=== PATIENT | male | born 1965 | race Caucasian/White ===

== ENCOUNTER 2019-11-28 00:16 | Outpatient (CLI) | payer OTHER, SELFPAY ==
[2019-11-28 18:07] LABS: SARS-CoV-2 RNA PCR Negative
== END 2019-11-28 00:17 | disposition home or self-care (01) ==
LOC: ANHCOVIDDT 00:16
PROVIDERS: PCP Internal Medicine; Visit Provider Internal Medicine Gastroenterology
DX: Z01.812 Encounter for preprocedural laboratory examination (principal); Z20.828 Contact with and (suspected) exposure to other viral communicable diseases
CPT/HCPCS: 87635; C9803; U0003

== ENCOUNTER 2019-11-30 00:57 | Day surgery (SDC) | payer OTHER, SELFPAY ==
[2019-11-22 15:51] VITALS: BMI 35.3
[2019-11-30 06:27] VITALS: BP 170/106; PULSE 107; RESP 20; TEMP 36.6; O2SAT 96
[2019-11-30] MEDS: LACTATED RINGERS 1,000 ML 150 ML IV CONT (06:37)
--- NOTE | 2019-11-30 06:39 | WPDANESEPPF ---
Anes - Initial Pre Proc Eval Procedure: Operation Date: 11/30/19 07:30 Proposed Procedures p Screening Colonoscopy - Lenard Gomes MD Date/Time: 11/30/19 06:39 Surgeon: Lenard Gomes MD Pre Op Diagnosis: Neoplasm Screening Patient Data Age: 54 Gender: M Height: 1.83 m Weight: 118.2 kg Last Vital Signs Temp 36.6 C 11/30/19 06:27 Pulse 107 H 11/30/19 06:27 Resp 20 11/30/19 06:27 BP 170/106 H 11/30/19 06:27 Pulse Ox 96 11/30/19 06:27 Allergies Allergy/AdvReac Type Severity Reaction Status Date / Time Penicillins Allergy Unknown PCN Verified 11/22/19 15:48 Home Medications Medication Instructions Recorded Confirmed Type Adult Low Dose Aspirin 81 mg PO DAILY 11/22/19 11/22/19 History psyllium husk [Metamucil] 1 tbsp PO DAILY 11/22/19 11/22/19 History Patient hx anesthesia problems: none Family hx anesthesia problems: none PMFSH Past Medical History Medical History (Updated 11/30/19 @ 06:39 by Gabriele Nicolas DO) Asthma Fatty liver Hypertension Social History Social History (Updated 11/30/19 @ 06:50 by Gabriele Nicolas DO) Alcohol intake: current Alcohol use details: 3 mixed drinks/day Anes - Eval Final PreProcedure Day of Procedure 11/30/19 06:39 Patient weight: obese Heart: regular rate and rhythm Lungs: clear to auscultation and normal air movement Airway: Mallampati scale class III Neurological: alert and oriented Last oral intake: >/= 8 hours ASA classification: III Emergent: no Anesthetic plan: proceed Anesthesia type and monitoring: general GIVS and standard monitoring Informed Consent: The patient's anesthetic plan and its attendant risks and benefits were discussed with the patient/family/POA. Questions were solicited and answers provided to the satisfaction of the patient/family/POA.
--- NOTE | 2019-11-30 06:51 | PM.HPGS ---
History of Present Illness History of Present Illness Consent: Risks, benefits, and alternatives have been discussed and questions answered. Patient agrees to proceed with procedure. Chief complaint: Neoplasm Screening Narrative: Logan Diez is a 54 year old W male Referred for his 1st screening colonoscopy. Patient did have a positive colo guard test. He has no family history of colon polyps or colon cancer in a first-degree relative. Thinks he had a cousin who had colon cancer. Patient is asymptomatic. [facility] Past Medical History Medical History Asthma Fatty liver Hypertension Surgical History Surgical History (Updated 11/30/19 @ 06:53 by Lenard Gomes MD) History of inguinal herniorrhaphy Status post appendectomy Social History Social History Alcohol intake: current Alcohol use details: 3 mixed drinks/day Meds Home Medications and Allergies Home Medications Medication Instructions Recorded Confirmed Type Adult Low Dose Aspirin 81 mg PO DAILY 11/22/19 11/22/19 History psyllium husk [Metamucil] 1 tbsp PO DAILY 11/22/19 11/22/19 History Allergies Allergy/AdvReac Type Severity Reaction Status Date / Time Penicillins Allergy Unknown PCN Verified 11/22/19 15:48 Vital Signs Vital Signs - 24 hr 11/30/19 06:27 Temperature 36.6 C Pulse Rate 107 H Respiratory Rate 20 Blood Pressure 170/106 H Pulse Oximetry 96 Exam Const: Orientation/consciousness: patient oriented x3 Resp: Auscultation: clear to auscultation bilaterally Cardio: Rate: regular rate Rhythm: regular rhythm Heart sounds: no murmurs GI: GI Palp: Yes Soft to palpation, No Tenderness to palpation present (GI), Yes No hepatosplenomegaly present and No Palpable mass present Auscultation: normal bowel sounds Neuro: General: patient oriented x3 and no focal motor deficits Extrem: General: no pedal edema Assessment and Plan Additional Plan screening colonoscopy secondary to a positive colo guard test
[2019-11-30] MEDS: SIMETHICONE ORAL SUSPENSION 20 MG/0.3 ML 30 ML BOTTLE 0.6 ML IRRIGATION (07:47)
[2019-11-30 07:55] VITALS: BP 120/78; PULSE 106; RESP 28; O2SAT 96
[2019-11-30 08:05] VITALS: BP 112/74; PULSE 97; RESP 23; O2SAT 95
[2019-11-30 08:15] VITALS: BP 121/82; PULSE 81; RESP 17; O2SAT 94
== END 2019-11-30 08:36 | disposition home or self-care (01) ==
PROVIDERS: PCP Internal Medicine; Visit Provider Internal Medicine Gastroenterology
PROC: 0DJD8ZZ Inspection of Lower Intestinal Tract, Via Natural or Artificial Opening Endoscopic (ICD-10-PCS; CPT 45378; principal; 2019-11-30 07:30)
DX: Z12.11 Encounter for screening for malignant neoplasm of colon (principal); R19.5 Other fecal abnormalities; D12.0 Benign neoplasm of cecum; K64.8 Other hemorrhoids; K64.4 Residual hemorrhoidal skin tags; K57.30 Diverticulosis of large intestine without perforation or abscess without bleeding; J45.909 Unspecified asthma, uncomplicated; I10 Essential (primary) hypertension; K76.0 Fatty (change of) liver, not elsewhere classified; Z79.82 Long term (current) use of aspirin; E66.9 Obesity, unspecified; Z68.36 Body mass index [BMI] 36.0-36.9, adult
CPT/HCPCS: 45385; 45381; 88305; J2001; J2704; J7120

== ENCOUNTER 2023-01-27 15:30 | Outpatient (RCR) | payer OTHER, SELFPAY | END 2023-03-14 10:08 | disposition home or self-care (01) | LOC: ANHDMC 15:30 | PROVIDERS: PCP Internal Medicine; Visit Provider Internal Medicine | DX: E11.9 Type 2 diabetes mellitus without complications (principal); Z71.89 Other specified counseling | CPT/HCPCS: G0108 ==

== ENCOUNTER 2023-03-31 15:19 | Outpatient (RCR) | payer OTHER, SELFPAY | END 2023-06-20 09:27 | disposition home or self-care (01) | LOC: ANHDMC 15:19 | PROVIDERS: PCP Internal Medicine; Visit Provider Internal Medicine | DX: E11.9 Type 2 diabetes mellitus without complications (principal); Z71.89 Other specified counseling | CPT/HCPCS: G0108 ==

== ENCOUNTER 2023-04-13 17:02 | Emergency (ER) | payer OTHER, SELFPAY ==
[2023-04-13 17:03] VITALS: BP 160/101; PULSE 100; RESP 18; TEMP 36.8; O2SAT 98
--- NOTE | 2023-04-13 17:17 | ED.LOWEXIN ---
HPI - Extremity Injury (Lower) General Chief Complaint: Extremity Injury, Lower Stated Complaint: toe injury Time Seen by Provider: 04/13/23 17:14 History of Present Illness HPI Narrative: 58-year-old male with a history of well-controlled diabetes presents to the emergency room for evaluation of left great toe pain and redness and swelling around the toenail. Patient states a week ago his dog jumped on his toe and he believes that the dog's nail scratched his toe. Related Data Home Medications Medication Instructions Recorded Confirmed Adult Low Dose Aspirin 81 mg PO DAILY 11/22/19 11/22/19 psyllium husk 3.4 gram/5.4 gram 1 tbsp PO DAILY 11/22/19 11/22/19 oral powder (Metamucil) Allergies Allergy/AdvReac Type Severity Reaction Status Date / Time Penicillins Allergy Unknown PCN Verified 04/13/23 17:02 Review of Systems Review of Systems: All systems reviewed & are unremarkable except as noted in HPI and below PMFSH Past Medical History Medical History Asthma Fatty liver Hypertension Surgical History Surgical History History of inguinal herniorrhaphy Status post appendectomy Social History Social History Alcohol intake: current Alcohol use details: 3 mixed drinks/day Exam Const: General: healthy appearing, no acute distress and alert Resp: Effort & Inspection: normal respiratory effort Auscultation: clear to auscultation bilaterally Cardio: Rate: regular rate Rhythm: regular rhythm Skin: Other: Right great toe: subungual hematoma. Erythema and tenderness to the lateral nail fold Psych: Mental Status: mental status grossly normal Affect: normal affect Attitude: cooperative Course Vital Signs Vital signs: Vital Signs Temperature 36.8 C 04/13/23 17:03 Pulse Rate 100 04/13/23 17:03 Respiratory Rate 18 04/13/23 17:03 Blood Pressure 160/101 H 04/13/23 17:03 Pulse Oximetry 98 04/13/23 17:03 Oxygen Delivery Room Air 04/13/23 17:03 Temperature 36.8 C 04/13/23 17:03 Pulse Rate 100 04/13/23 17:03 Respiratory Rate 18 04/13/23 17:03 Blood Pressure 160/101 H 04/13/23 17:03 Pulse Oximetry 98 04/13/23 17:03 Oxygen Delivery Room Air 04/13/23 17:03 Procedures Nail Trephination Nail Trephination #1: Nail Trephination Date: 04/13/23 Nail Trephination Time: 17:29 Time out: Yes Location (toes): first digit Sterile prep: betadine Method of drainage: nail cautery Procedure successful: Yes Patient tolerated procedure: well Discharge Plan Discharge Clinical Impression: Cellulitis of great toe of left foot Subungual hematoma of great toe of left foot Qualifiers: Encounter type: initial encounter Qualified Code(s): S90.212A - Contusion of left great toe with damage to nail, initial encounter Patient Disposition: Home, Self-Care Condition: Stable Instructions: Antibiotic Form Prescriptions: New sulfamethoxazole-trimethoprim 800-160 mg tablet 1 tablet PO Q12H Qty: 14 0RF No Action Adult Low Dose Aspirin 81 mg PO DAILY Metamucil 3.4 gram/5.4 gram Powder 1 tbsp PO DAILY Follow-up/Referrals: Satish,MD Brannon [Primary Care Provider] - Time of Disposition: 17:31
== END 2023-04-13 18:20 | disposition home or self-care (01) ==
PROVIDERS: Emergency Provider Nurse Practitioner Family; PCP Internal Medicine
DX: L03.032 Cellulitis of left toe (principal); S90.212A Contusion of left great toe with damage to nail, initial encounter; E11.9 Type 2 diabetes mellitus without complications; I10 Essential (primary) hypertension; J45.909 Unspecified asthma, uncomplicated; Z79.82 Long term (current) use of aspirin; W54.8XXA Other contact with dog, initial encounter
CPT/HCPCS: 11740; 99283

== ENCOUNTER 2023-06-30 12:59 | Outpatient (RCR) | payer OTHER, SELFPAY | END 2023-06-30 15:13 | disposition home or self-care (01) | LOC: ANHDMC 12:59 | PROVIDERS: PCP Internal Medicine; Visit Provider Internal Medicine | DX: E11.9 Type 2 diabetes mellitus without complications (principal); Z71.89 Other specified counseling | CPT/HCPCS: G0108 ==

== ENCOUNTER 2024-12-21 00:34 | Day surgery (SDC) | payer OTHER, SELFPAY ==
[2024-12-13 14:11] VITALS: BMI 32.5
--- OUTSIDE RECORDS SUMMARY | 2024-12-21 00:38 | XMS_ITS | Data Portability ---
Author Organization [facility] Address [address] [place] [address] Care Team Providers Care Carpenter Ship Name Role Phone MADDY ALMA Primary Care Provider Assessment Encounter Date Assessment Date Assessment LastModified by Organization Details LastModified Time 07/12/2024 07/12/2024 get old records to see immunizations and screenings. Refuses pneumococcal and flu. Needs cut down on drinking and that was discussed CBC CMP lipid UA CR colonoscopy set up diabetic foot exam follow up 6 months Not available 08/05/2024 22:42:13 Plan of Treatment Reminders Order Date Submit Date Provider Last Modified By Organization Details Last Modified Time Details Appointments ANY 15 2024 03:15P M Alma Covarrubias MD Not available Not available Not available Lab PSA, serum or plasma 2024 025 sandipa [facility], [address], [place], [address], 11/30/2024 10:07:49 albumin/c reatinine , mass ratio, urine 2024 025 gio [facility], [address], [place], [address], 11/30/2024 10:07:49 HbA1c (hemoglob in A1c), blood 2024 025 gio [facility], [address], [place], [address], 11/30/2024 10:07:49 lipid panel, serum 2024 025 [email or web address] [facility], [address], [place], [address], 11/30/2024 10:07:49 CMP, serum or plasma 2024 025 [email or web address] [facility], [address], [place], [address], 11/30/2024 10:07:49 CBC w/ auto diff 2024 025 [email or web address] [facility], [address], [place], [address], 11/30/2024 10:07:49 Referral podiatris t referral 2024 025 daya Coto Jr [facility], [address], [place], [address], 12/13/2024 10:12:28 Procedures colonosco py screening (PROC) 2024 025 [facility], [address], [id number], [place], [address], 09/21/2024 10:14:04 Surgeries None recorded. Imaging None recorded. Medication Orders None recorded. Patient TargetsNo targets recorded. 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 BARCODE Not Available 2024 15:40:50 Result Notes None recorded. Problems Name Problem SNOMED Code Status Onset Date Resolution Date Notes Provider Name and Address Organization Details Recorded Time Type 2 diabetes mellitus 13466066 Active 2024 Alan Troy MA null, [place] - [facility] 16:00:10 Hyperlipidemia 94577362 Active 2024 Alan JAZMIN Troy null, [facility] 16:00:10 Screening for malignant neoplasm of prostate Active 2024 Jairondarien JAZMIN Troy null, [facility] 5 16:02:59 Problem Notes None recorded. Medical Equipment None Reported. Allergies Allergen ID Allergen Name Allergen Category Reaction Reaction Severity Criticality Documentation Date Start Date Code Code System Note Provider Name and Address Organization Details Recorded Time 18100311 Product containin g penicilli n (product) medicatio n hives mild low 07/12/2024 70078 8001 SNOMED Ronda KeatingJAZMIN null, [facility] 5 14:44:45 Medications Name Sig Start Date Stop Date Status Note LastModified by Organization Details LastModified Time metformin 500 mg tablet TAKE 2 TABLETS BY MOUTH TWICE DAILY 05/18 completed Not Available Not Available Not Available atorvastati n 10 mg tablet TAKE 1 TABLET BY MOUTH EVERY DAY active Not Available Not Available No t Available metformin ER 500 mg tablet,exte nded release 24 hr TAKE 2 TABLETS BY MOUTH EVERY DAY AT BEDTIME 2024 active Not Available Not Available Not Avai lable ezetimibe 10 mg tablet TAKE 1 TABLET BY MOUTH DAILY 2024 active Not Available Not Available Not Avai lable OneTouch Verio test strips USE TO TEST TWICE DAILY active Not Available Not Available No t Available OneTouch Delica Plus Lancet 33 gauge USE TO CHECK BLOOD SUGAR TWICE DAILY active Not Available Not Available No t Available aspirin 81 mg capsule Take 1 capsule every day by oral route. active Not Available Not Available No t Available albuterol 90 mcg-budeson cristiana 80 mcg/actuati on HFA aerosol inhaler Inhale as needed by inhalatio n route. active Not Available Not Available No t Available Vitals Date Recorded Body height Body mass index (BMI) Body weight Heart rate Oxygen saturation Oxygen saturation in Arterial blood by Pulse oximetry Systolic blood pressure Diastolic blood pressure Provider Name and Address Organization Details Last Updated DateTime 182.88 cm 36.3 kg/m2 457118. 76 g 100 /min 98 % 98 % 136 mm[Hg] 70 mm[Hg] Ronda Keating MA [place] [facility] 14:53:19 Social History Question Answer Notes LastModified by Organizat ion Details LastModified Time Tobacco Smoking Status Former Smoker Ronda Keating MA null, [place] - [facility] 07/12/2024 14:47:26 Do You Have An Advance Directive? No Information not available 07/12/2024 Are You Blind Or Do You Have Difficulty Seeing? No Blurry Spot In Left Eye Information not available 07/12/2024 What Is Your Level Of Caffeine Consumption? Moderate Information not available 07/12/2024 In The 14 Days Before Symptom Onset, Have You Had Close Contact With A Laboratory-confir med COVID-19 While That Case Was Ill? No Information not available 07/12/2024 In The 14 Days Before Symptom Onset, Have You Had Close Contact With A Person Who Is Under Investigation For COVID-19 While That Person Was Ill? No Information not available 07/12/2024 Have You Been To An Area Known To Be High Risk For COVID-19? No Information not available 07/12/2024 Are You Deaf Or Do You Have Serious Difficulty Hearing? No Information not available 07/12/2024 What Type Of Diet Are You Following? REGULAR Information not available 07/12/2024 Are There Any Guns Present In Your Home? No Information not available 07/12/2024 What Was The Date Of Your Most Recent Tobacco Screening? 07/12/2024 Information not available 07/12/2024 What Is Your Current Pack Years? 10packyears Information not available 07/12/2024 What Is Your Relationship Status? Information not available 07/12/2024 Do You Use Your Seat Belt Or Car Seat Routinely? Yes Information not available 07/12/2024 Do You Have Smoke And Carbon Monoxide Detectors In Your Home? Yes Information not available 07/12/2024 How Much Tobacco Do You Smoke? 0.5 PPD Information not available 07/12/2024 Do You Use Sunscreen Routinely? Yes Information not available 07/12/2024 Has Tobacco Cessation Counseling Been Provided? No Information not available 07/12/2024 Sex: Male Functional Status Question Answer Note LastModified by Organizat ion Details LastModified Time Do you use any illicit or recreational drugs? No Information not available 07/12/2024 Do you or have you ever used any other forms of tobacco or nicotine? No Information not available 07/12/2024 What is your level of alcohol consumption? Heavy Information not available 07/12/2024 Are you currently employed? Yes Information not available 07/12/2024 Are you able to care for yourself? 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 None Information not available 07/12/2024 Mental Status Question Answer Note LastModified by Organization D etails LastModified Time Do you feel stressed (tense, restless, nervous, or anxious, or unable to sleep at night)? [id number] Information not available 07/12/2024 Family History Nothing Reported. Medical History Condition Response Diabetes Y High Blood Pressure Y High Cholesterol Y Past Encounters Encounter ID Performer Location Encounter Start Date Encounter Closed Date Diagnosis/Indication Diagnosis SNOMED-CT Code Diagnosis ICD10 Code Diagnosis Note [id number] Alma Covarrubias MD [facility] [address] [place] [phone] 07/12/2024 14:30:47 07/12/2024 15:59:24 Body mass index 30+ - obesity 327323118 Z68.36 Obesity 338526776 E66.9 Type 2 milton betes mellitus 22864879 E11.9 Hyperlipidemia 14609447 E78.5 Screening for malignant neoplasm of prostate 786858927 Z12.5 Screening for malignant neoplasm of colon 401934982 Z12.11 Health Concerns Section Related Observation LastModified by Organization Detai ls LastModified Time None Recorded Concern Status LastModified by Organization Details LastModified Time None Recorded Advance Directives Directive N: Payers Insurance Date Sequence Insurance Name Policy Number Policy Tai Covered Member ID Tai Member ID Guarantor Name 08/06/2024 1 [facility] [id number] Kishore Diez [id number] T lucita Diez Notes Date Note Type Note Provider Name and Address Organization Details Recorded Time 07/12/2024 text/html 59-year-old with diabetes hyperlipidemia and obesity comes in reestablishing care medications Zetia metformin allergies penicillin surgeries appendectomy mother asthma diabetes hypertension father asthma. Patient is drinks 4-6 bourbon drinks a day no illicit drug use no tobacco or vaping employed at [employer] Alma Covarrubias MD Attn: Accounting,[address] [facility], [place], [address], [facility] 08/05/2024 22:42:38
--- OUTSIDE RECORDS SUMMARY | 2024-12-21 00:38 | XMS_ITS | Data Portability ---
Author Organization [place] [employer], Main Office Address [address] [place] [address] Assessment Encounter Date Assessment Date Assessment LastModified by Organization Details LastModified Time 12/14/2022 12/14/2022 A1c was 10.5 insurance has denied Ozempic until he fails metformin which is beyond me. Weight loss diabetic class teaching would like to start KASI-inhibitor as well statin follow-up 3 months [email or web address] Not available 12/19/2022 10:27:14 03/22/2023 03/22/2023 Switch to metformin ER 502 p.o. q.h.s. blood work ordered eye exam follow-up 4 months stop the atorvastatin because his eye issues started after he started so will see what ophthalmology says [email or web address] Not available 03/22/2023 22:01:27 04/19/2023 04/19/2023 Obtain blood work stop the Septra will switch to doxycycline for 4-5 days [email or web address] Not available 04/19/2023 22:44:23 06/21/2023 06/21/2023 Will stop Lipitor because of the blurred vision does not want to take another drug in that class at this time so we will add some Zetia see him back in about 3 months would like to get him on a G LP 1 agent if we could Not available 07/04/2023 13:38:22 07/19/2023 07/19/2023 Will continue current therapy follow-up with me in about 4 months blood work reviewed [email or web address] Not available 07/19/2023 21:47:07 Plan of Treatment Reminders Order Date Submit Date Provider Last Modified By Organization Details Last Modified Time Details Appointments None recorded. Lab CBC w/ auto diff 2022 023 [email or web address] Not available 08:43:03 lipid panel, serum 2022 023 Not available 4 08:43:04 CMP, serum or plasma 2022 023 [email or web address] Not available 4 21:24:58 HbA1c (hemoglobin A1c), blood 2022 023 [email or web address] Not available 4 08:43:03 CBC w/ auto diff 2022 023 YENNIFER Not available 3 18:17:21 BMP, serum or plasma 2022 023 YENNIFER Not available 3 18:29:36 HbA1c (hemoglobin A1c), blood 2022 023 [email or web address] Not available 3 14:44:59 CMP, serum or plasma 2022 023 YENNIFER Not available 3 19:24:51 lipid panel, serum 2022 023 YENNIFER Not available 3 19:25:00 Referral None recorded. Procedures None recorded. Surgeries None recorded. Imaging None recorded. Medication Orders metformin ER 500 mg tablet,exte nded release 24 hr [address] [id number], [address] [facility], [place], [place], [id number], 4 16:50:34 OneTouch Verio test strips [address] [id number], [address] [place], [place], [id number], 4 21:38:32 Zetia 10 mg tablet [address] [id number], [address] [place], [id number], 4 16:50:34 Zetia 10 mg tablet 2022 023 [email or web address] [facility] #72085, [address], [place], [place], [id number], 3 14:49:35 doxycycline hyclate 100 mg capsule 2022 023 [email or web address] [facility] #76625, [address], [place], [place], [id number], 3 14:07:54 metformin ER 500 mg tablet,exte nded release 24 hr 2022 023 [email or web address] [facility] #95411, [address], [place], [place], [id number], 3 17:28:44 Patient TargetsNo targets recorded. Patient Instructions Encounter Date Encounter Id Patient Instructions Last Modified By Organization Details Last Modified Time 03/22/2023 [id number] diabetic eye exam* YENNIFER Not available 04/19/2023 13:13:35 Reason for Referral None Reported. Results Created Date Observation Date Name Description Value Unit Range Abnormal Flag Note LastModifiedBy Organization Detail LastModifiedTime 03/22/2003/22/2023 COMPR EHENS HELEN METAB OLIC PANEL sodium 136 mmol/ L 137-14 5 low Not Available [facility] (Lab) [address] [place], [address], 03/22/2023 19:24:51 03/22/2003/22/2023 COMPR EHENS HELEN METAB OLIC PANEL potassium 4.7 mmol/ L 3.5-5. 1 Not Available [facility] (Lab) [address] [place], [address], 03/22/2023 19:24:51 03/22/2003/22/2023 COMPR EHENS HELEN METAB OLIC PANEL chloride 99 mmol/ L 98-107 Not Available [facility] (Lab) [address] [place], [address], 03/22/2023 19:24:51 03/22/20 23 03/22/2023 COMPR EHENS HELEN METAB OLIC PANEL carbon dioxide 29 mmol/ L 22-30 Not Available [facility] (Lab) [address] [place], [address], 03/22/2023 19:24:51 03/22/20 23 03/22/2023 COMPR EHENS HELEN METAB OLIC PANEL anion gap 12.7 mmol/ L 14-22 low Not Available [facility] (Lab) [address] [place], [address], 03/22/2023 19:24:51 03/22/20 23 03/22/2023 COMPR EHENS HELEN METAB OLIC PANEL glucose 104 mg/dL 70-99 high Not Available [facility] (Lab) [address] [place], [address], 03/22/2023 19:24:51 03/22/20 23 03/22/2023 COMPR EHENS HELEN METAB OLIC PANEL BUN 17 mg/dL 8-19 Not Available [facility] (Lab) [address] [place], [address], 03/22/2023 19:24:51 03/22/20 23 03/22/2023 COMPR EHENS HELEN METAB OLIC PANEL creatinine 1.07 mg/dL 0.66-1 .25 Not Available [facility] (Lab) [address] [place], [address], 03/22/2023 19:24:51 03/22/20 23 03/22/2023 COMPR EHENS HELEN METAB OLIC PANEL GFR >60 Refer ence Range : [place] ge GFR Healt hy Adult : >60 mL/mi n/1.7 3 m2 Chron ic Kidne y Disea se: 15-60 mL/mi n/1.7 3 m2 Kidne y Failu re: <15/m L/min /1.73 m2 www.n iddk. nih.g ov The MDRD study equat ion has not been valid ated in child bienvenido <18 years of age; pregn ant women ; the elder ly >85 years of age; or in some racia l or ethni c subgr oups, such as Hispa nics. Outsi de the valid ated sheila eters , estim ated GFR is less accur ate, requi ring clini hailey judgm ent on a case- by-ca se basis . Clini hailey inter preta tion for other races and ages must be made by the clini john. The MDRD study equat ion has not been valid ated for the evalu ation of serum creat inine relat ed to nutri dea l statu s or medic ation usage . For perso ns <18 years of age, a pedia tric GFR calcu lator is avail able on the [facility] websi te: https ://matthew w.elizabeth hammond.o rg/pr ofess ional s/kdo qi/gf r_cal culat or Not Available [facility] (Lab) [address] [place], [address], 03/22/2023 19:24:51 03/22/20 23 03/22/2023 COMPR EHENS HELEN METAB OLIC PANEL alkaline phosphatase 56 U/L 38-126 Not Available [facility] (Lab) [address] [place], [address], 03/22/2023 19:24:51 03/22/20 23 03/22/2023 COMPR EHENS HELEN METAB OLIC PANEL alanine aminotransfe rase 38 U/L 0-50 Not Available [facility] (Lab) [address] [place], [address], 03/22/2023 19:24:51 03/22/20 23 03/22/2023 COMPR EHENS HELEN METAB OLIC PANEL aspartate aminotransfe rase 29 U/L 15-46 Not Available [facility] (Lab) [address] [place], [address], 03/22/2023 19:24:51 03/22/20 23 03/22/2023 COMPR EHENS HELEN METAB OLIC PANEL bilirubin, total 0.90 mg/dL 0.20-1 .30 Not Available [facility] (Lab) [address] [place], [address], 03/22/2023 19:24:51 03/22/20 23 03/22/2023 COMPR EHENS HELEN METAB OLIC PANEL calcium 9.6 mg/dL 8.4-10 .2 Not Available [facility] (Lab) [address] [place], [address], 03/22/2023 19:24:51 03/22/20 23 03/22/2023 COMPR EHENS HELEN METAB OLIC PANEL total protein 7.0 g/dL 6.3-8. 2 Not Available [facility] (Lab) [address] [place], [address], 03/22/2023 19:24:51 03/22/20 23 03/22/2023 COMPR EHENS HELEN METAB OLIC PANEL albumin 4.6 g/dL 3.4-5. 0 Not Available [facility] (Lab) [address] [place], [address], 03/22/2023 19:24:51 03/22/20 23 03/22/2023 COMPR EHENS HELEN METAB OLIC PANEL globulin 2.4 g/dL 2.6-4. 2 low Not Available [facility] (Lab) [address] [place], [address], 03/22/2023 19:24:51 03/22/20 23 03/22/2023 COMPR EHENS HELEN METAB OLIC PANEL A/G ratio 1.9 ratio 1.0-2. 0 Not Available [facility] (Lab) [address] [place], [address], 03/22/2023 19:24:51 03/22/20 23 03/22/2023 LIPID PANEL cholesterol 211 mg/dL 140-19 9 high NIH PRIETO NSUS RECOM MENDA TION FOR TOÑA STERO L: ADULT CHILD LOW RISK: <200 <170 BORDE RLINE : <200- 239 ----- HIGH RISK: >240 >200 Not Available [facility] (Lab) [address] [place], [address], 03/22/2023 19:25:00 03/22/2003/22/2023 LIPID PANEL triglyceride s 136 mg/dL 0-150 NIH PRIETO NSUS REPOR T RECOM MENDA TION FOR TRIGL YCERI MILTON: ADULT CHILD LOW RISK: <150 ----- BODER LINE: 150-1 99 ----- HIGH RISK: >200 ----- Not Available [facility] (Lab) [address] [place], [address], 03/22/2023 19:25:00 03/22/2003/22/2023 LIPID PANEL HDL cholesterol 63 mg/dL 40- Not Available [facility] (Lab) [address] [place], [address], 03/22/2023 19:25:00 03/22/2003/22/2023 LIPID PANEL LDL cholesterol, calculated 121 mg/dL 0-130 NIH PRIETO NSUS REPOR T RECOM MENDA TIONS FOR LDL: ADULT CHILD LOW RISK <130 <110 (OPTI MAL LDL) <100 ----- BORDE RLINE : 130-1 59 ----- HIGH RISK: >160 >130 A TRIGL YCERI DE RESUL T >400 INVAL IDATE S THE CALCU LATIO N FOR LDL FRACT IONAT ION - THE LDL RESUL T WILL NOT BE REPOR CHADD. Not Available [facility] (Lab) [address] [place], [address], 03/22/2023 19:25:00 03/22/2003/22/2023 HEMOG LOBIN A1C HA1C 5.8 % 4.0-6. 0 Diabe bipin Scree bharat Crite darshan: <5.7% Consi stent with absen ce of diabe bipin 5.7-6 .4% Consi stent with incre ased risk for diabe bipin (pred iabet es) >OR=6 .5% Consi stent with diabe bipin REFER ENCE: Diabe bipin Care 2016, 39(Randall ppl.1 ):s13 -s22 Not Available [facility] (Lab) [address] [place], [address], 03/22/2023 21:54:29 04/19/2004/19/2023 CBC/C OMPLE TE BLD COUNT W/DIF F white blood cells 3.8 x10'3 /uL 4.2-10 .8 low Not Available [facility] (Lab) [address] [place], [address], 04/19/2023 20:56:17 04/19/20 23 04/19/2023 CBC/C OMPLE TE BLD COUNT W/DIF F red blood cells 5.23 x10'6 /uL 4.10-5 .80 Not Available [facility] (Lab) [address] [place], [address], 04/19/2023 20:56:17 04/19/2004/19/2023 CBC/C OMPLE TE BLD COUNT W/DIF F hemoglobin 16.8 g/dL 13.2-1 7.0 Not Available [facility] (Lab) [address] [place], [address], 04/19/2023 20:56:17 04/19/20 23 04/19/2023 CBC/C OMPLE TE BLD COUNT W/DIF F hematocrit 48.7 % 39.3-5 0.0 Not Available [facility] (Lab) [address] [place], [address], 04/19/2023 20:56:17 04/19/20 23 04/19/2023 CBC/C OMPLE TE BLD COUNT W/DIF F mean red cell volume 93.1 fL 80.0-9 7.0 Not Available [facility] (Lab) [address] [place], [address], 04/19/2023 20:56:17 04/19/20 23 04/19/2023 CBC/C OMPLE TE BLD COUNT W/DIF F mean red cell hemoglobin 32.1 pg 27.0-3 3.0 Not Available [facility] (Lab) [address] [place], [address], 04/19/2023 20:56:17 04/19/20 23 04/19/2023 CBC/C OMPLE TE BLD COUNT W/DIF F mean RBC HGB concentratio n 34.5 g/dL 31.0-3 6.0 Not Available [facility] (Lab) [address] [place], [address], 04/19/2023 20:56:17 04/19/20 23 04/19/2023 CBC/C OMPLE TE BLD COUNT W/DIF F red cell distribution width 12.7 % 11.8-1 5.5 Not Available [facility] (Lab) [address] [place], [address], 04/19/2023 20:56:17 04/19/20 23 04/19/2023 CBC/C OMPLE TE BLD COUNT W/DIF F platelets 182 x10'3 /uL 150-40 0 Not Available [facility] (Lab) [address] [place], [address], 04/19/2023 20:56:17 04/19/20 23 04/19/2023 CBC/C OMPLE TE BLD COUNT W/DIF F mean platelet volume 10.2 fL 9.0-12 .4 Not Available [facility] (Lab) [address] [place], [address], 04/19/2023 20:56:17 04/19/20 23 04/19/2023 CBC/C OMPLE TE BLD COUNT W/DIF F neutrophils 56 % 39.0-7 2.0 Not Available [facility] (Lab) [address] [place], [address], 04/19/2023 20:56:17 04/19/20 23 04/19/2023 CBC/C OMPLE TE BLD COUNT W/DIF F bands 5 % 0-3 high Not Available [facility] (Lab) [address] [place], [address], 04/19/2023 20:56:17 04/19/2004/19/2023 CBC/C OMPLE TE BLD COUNT W/DIF F lymphocytes 13 % 16.0-4 7.0 low Not Available [facility] (Lab) [address] [place], [address], 04/19/2023 20:56:17 04/19/20 23 04/19/2023 CBC/C OMPLE TE BLD COUNT W/DIF F monocytes 16 % 5.0-12 .0 high Not Available [facility] (Lab) [address] [place], [address], 04/19/2023 20:56:17 04/19/2004/19/2023 CBC/C OMPLE TE BLD COUNT W/DIF F eosinophils 10 % 1.0-7. 0 high Not Available [facility] (Lab) [address] [place], [address], 04/19/2023 20:56:17 04/19/20 23 04/19/2023 CBC/C OMPLE TE BLD COUNT W/DIF F neutrophils, absolute count 2.23 x10'3 /uL 1.5-8. 0 Not Available [facility] (Lab) [address] [place], [address], 04/19/2023 20:56:17 04/19/20 23 04/19/2023 CBC/C OMPLE TE BLD COUNT W/DIF F nucleated red blood cells 0.0 % -0 Not Available [facility] (Lab) [address] [place], [address], 04/19/2023 20:56:17 04/19/2004/19/2023 CBC/C OMPLE TE BLD COUNT W/DIF F NRBC# 0.00 x10'3 /uL Not Available [facility] (Lab) [address] [place], [address], 04/19/2023 20:56:17 04/19/2004/19/2023 BASIC METAB OLIC PANEL sodium 132 mmol/ L 137-14 5 low Not Available [facility] (Lab) [address] [place], [address], 04/19/2023 18:29:36 04/19/2004/19/2023 BASIC METAB OLIC PANEL potassium 4.6 mmol/ L 3.5-5. 1 Not Available [facility] (Lab) [address] [place], [address], 04/19/2023 18:29:36 04/19/2004/19/2023 BASIC METAB OLIC PANEL chloride 98 mmol/ L 98-107 Not Available [facility] (Lab) [address] [place], [address], 04/19/2023 18:29:36 04/19/20 23 04/19/2023 BASIC METAB OLIC PANEL carbon dioxide 26 mmol/ L 22-30 Not Available [facility] (Lab) [address] [place], [address], 04/19/2023 18:29:36 04/19/2004/19/2023 BASIC METAB OLIC PANEL anion gap 12.6 mmol/ L 14-22 low Not Available [facility] (Lab) [address] [place], [address], 04/19/2023 18:29:36 04/19/2004/19/2023 BASIC METAB OLIC PANEL glucose 100 mg/dL 70-99 high Not Available [facility] (Lab) [address] [place], [address], 04/19/2023 18:29:36 04/19/2004/19/2023 BASIC METAB OLIC PANEL BUN 13 mg/dL 8-19 Not Available [facility] (Lab) [address] [place], [address], 04/19/2023 18:29:36 04/19/2004/19/2023 BASIC METAB OLIC PANEL creatinine 1.21 mg/dL 0.66-1 .25 Not Available [facility] (Lab) [address] [place], [address], 04/19/2023 18:29:36 04/19/2004/19/2023 BASIC METAB OLIC PANEL GFR >60 Refer ence Range : [place] ge GFR Healt hy Adult : >60 mL/mi n/1.7 3 m2 Chron ic Kidne y Disea se: 15-60 mL/mi n/1.7 3 m2 Kidne y Failu re: <15/m L/min /1.73 m2 www.n iddk. nih.g ov The MDRD study equat ion has not been valid ated in child bienvenido <18 years of age; pregn ant women ; the elder ly >85 years of age; or in some racia l or ethni c subgr oups, such as Hispa nics. Outsi de the valid ated sheila eters , estim ated GFR is less accur ate, requi ring clini hailey judgm ent on a case- by-ca se basis . Clini hailey inter preta tion for other races and ages must be made by the clini john. The MDRD study equat ion has not been valid ated for the evalu ation of serum creat inine relat ed to nutri dea l statu s or medic ation usage . For perso ns <18 years of age, a pedia tric GFR calcu lator is avail able on the [facility] websi te: https ://matthew montaño.elizabeth hammond.o rg/pr ofess ional s/kdo qi/gf r_cal culat or Not Available [facility] (Lab) [address] [place], [address], 04/19/2023 18:29:36 04/19/2004/19/2023 BASIC METAB OLIC PANEL calcium 9.4 mg/dL 8.4-10 .2 Not Available [facility] (Lab) [address] [place], [address], 04/19/2023 18:29:36 04/21/2004/21/2023 CBC/C OMPLE TE BLD COUNT W/DIF F white blood cells 3.5 x10'3 /uL 4.2-10 .8 low Not Available [facility] (Lab) [address] [place], [address], 04/21/2023 18:27:52 04/21/2004/21/2023 CBC/C OMPLE TE BLD COUNT W/DIF F red blood cells 5.22 x10'6 /uL 4.10-5 .80 Not Available [facility] (Lab) [address] [place], [address], 04/21/2023 18:27:52 04/21/2004/21/2023 CBC/C OMPLE TE BLD COUNT W/DIF F hemoglobin 16.6 g/dL 13.2-1 7.0 Not Available [facility] (Lab) [address] [place], [address], 04/21/2023 18:27:52 04/21/2004/21/2023 CBC/C OMPLE TE BLD COUNT W/DIF F hematocrit 49.1 % 39.3-5 0.0 Not Available [facility] (Lab) [address] [place], [address], 04/21/2023 18:27:52 04/21/2004/21/2023 CBC/C OMPLE TE BLD COUNT W/DIF F mean red cell volume 94.1 fL 80.0-9 7.0 Not Available [facility] (Lab) [address] [place], [address], 04/21/2023 18:27:52 04/21/2004/21/2023 CBC/C OMPLE TE BLD COUNT W/DIF F mean red cell hemoglobin 31.8 pg 27.0-3 3.0 Not Available [facility] (Lab) [address] [facility] [place], [address], 04/21/2023 18:27:52 04/21/2004/21/2023 CBC/C OMPLE TE BLD COUNT W/DIF F mean RBC HGB concentratio n 33.8 g/dL 31.0-3 6.0 Not Available [facility] (Lab) [address] [place], [address], 04/21/2023 18:27:52 04/21/2004/21/2023 CBC/C OMPLE TE BLD COUNT W/DIF F red cell distribution width 12.8 % 11.8-1 5.5 Not Available [facility] (Lab) [address] [place], [address], 04/21/2023 18:27:52 04/21/2004/21/2023 CBC/C OMPLE TE BLD COUNT W/DIF F platelets 187 x10'3 /uL 150-40 0 Not Available [facility] (Lab) [address] [place], [address], 04/21/2023 18:27:52 04/21/2004/21/2023 CBC/C OMPLE TE BLD COUNT W/DIF F mean platelet volume 10.5 fL 9.0-12 .4 Not Available [facility] (Lab) [address] [place], [address], 04/21/2023 18:27:52 04/21/2004/21/2023 CBC/C OMPLE TE BLD COUNT W/DIF F neutrophils 32.7 % 39.0-7 2.0 low Not Available [facility] (Lab) [address] [place], [address], 04/21/2023 18:27:52 04/21/2004/21/2023 CBC/C OMPLE TE BLD COUNT W/DIF F lymphocytes 42.0 % 16.0-4 7.0 Not Available [facility] (Lab) [address] [place], [address], 04/21/2023 18:27:52 04/21/2004/21/2023 CBC/C OMPLE TE BLD COUNT W/DIF F monocytes 14.8 % 5.0-12 .0 high Not Available [facility] (Lab) [address] [place], [address], 04/21/2023 18:27:52 04/21/2004/21/2023 CBC/C OMPLE TE BLD COUNT W/DIF F eosinophils 8.8 % 1.0-7. 0 high Not Available [facility] (Lab) [address] [place], [address], 04/21/2023 18:27:52 04/21/2004/21/2023 CBC/C OMPLE TE BLD COUNT W/DIF F basophils 1.4 % 0.0-2. 0 Not Available [facility] (Lab) [address] [place], [address], 04/21/2023 18:27:52 04/21/2004/21/2023 CBC/C OMPLE TE BLD COUNT W/DIF F immature granulocytes 0.3 % 0.00-0 .50 Not Available [facility] (Lab) [address] [place], [address], 04/21/2023 18:27:52 04/21/2004/21/2023 CBC/C OMPLE TE BLD COUNT W/DIF F neutrophils, absolute count 1.15 x10'3 /uL 1.5-8. 0 low Not Available [facility] (Lab) [address] [place], [address], 04/21/2023 18:27:52 04/21/2004/21/2023 CBC/C OMPLE TE BLD COUNT W/DIF F lymphocytes, absolute count 1.48 x10'3 /uL 1.07-3 .43 Not Available [facility] (Lab) [address] [place], [address], 04/21/2023 18:27:52 04/21/2004/21/2023 CBC/C OMPLE TE BLD COUNT W/DIF F monocytes, absolute count 0.52 x10'3 /uL 0.29-0 .99 Not Available [facility] (Lab) [address] [place], [address], 04/21/2023 18:27:52 04/21/2004/21/2023 CBC/C OMPLE TE BLD COUNT W/DIF F eosinophils, absolute count 0.31 x10'3 /uL 0.02-0 .53 Not Available [facility] (Lab) [address] [place], [address], 04/21/2023 18:27:52 04/21/2004/21/2023 CBC/C OMPLE TE BLD COUNT W/DIF F basophils, absolute count 0.05 x10'3 /uL 0.01-0 .08 Not Available [facility] (Lab) [address] [place], [address], 04/21/2023 18:27:52 04/21/2004/21/2023 CBC/C OMPLE TE BLD COUNT W/DIF F immature granulocytes ,absolute 0.01 x10'3 /uL 0.00-0 .05 Not Available [facility] (Lab) [address] [place], [address], 04/21/2023 18:27:52 04/21/2004/21/2023 CBC/C OMPLE TE BLD COUNT W/DIF F nucleated red blood cells 0.0 % -0 Not Available [facility] (Lab) [address] [place], [address], 04/21/2023 18:27:52 04/21/2004/21/2023 CBC/C OMPLE TE BLD COUNT W/DIF F NRBC# 0.00 x10'3 /uL Not Available [facility] (Lab) [address] [place], [address], 04/21/2023 18:27:52 04/21/2004/21/2023 COMPR EHENS HELEN METAB OLIC PANEL sodium 138 mmol/ L 137-14 5 Not Available [facility] (Lab) [address] [place], [address], 04/21/2023 19:51:41 04/21/2004/21/2023 COMPR EHENS HELEN METAB OLIC PANEL potassium 4.9 mmol/ L 3.5-5. 1 Not Available [facility] (Lab) [address] [place], [address], 04/21/2023 19:51:41 04/21/2004/21/2023 COMPR EHENS HELEN METAB OLIC PANEL chloride 101 mmol/ L 98-107 Not Available [facility] (Lab) [address] [place], [address], 04/21/2023 19:51:41 04/21/2004/21/2023 COMPR EHENS HELEN METAB OLIC PANEL carbon dioxide 27 mmol/ L 22-30 Not Available [facility] (Lab) [address] [place], [address], 04/21/2023 19:51:41 04/21/2004/21/2023 COMPR EHENS HELEN METAB OLIC PANEL anion gap 14.9 mmol/ L 14-22 Not Available [facility] (Lab) [address] [place], [address], 04/21/2023 19:51:41 04/21/2004/21/2023 COMPR EHENS HELEN METAB OLIC PANEL glucose 109 mg/dL 70-99 high Not Available [facility] (Lab) [address] [place], [address], 04/21/2023 19:51:41 04/21/2004/21/2023 COMPR EHENS HELEN METAB OLIC PANEL BUN 19 mg/dL 8-19 Not Available [facility] (Lab) [address] [place], [address], 04/21/2023 19:51:41 04/21/2004/21/2023 COMPR EHENS HELEN METAB OLIC PANEL creatinine 1.21 mg/dL 0.66-1 .25 Not Available [facility] (Lab) [address] [place], [address], 04/21/2023 19:51:41 04/21/2004/21/2023 COMPR EHENS HELEN METAB OLIC PANEL GFR >60 Refer ence Range : [place] ge GFR Healt hy Adult : >60 mL/mi n/1.7 3 m2 Chron ic Kidne y Disea se: 15-60 mL/mi n/1.7 3 m2 Kidne y Failu re: <15/m L/min /1.73 m2 www.n iddk. nih.g ov The MDRD study equat ion has not been valid ated in child bienvenido <18 years of age; pregn ant women ; the elder ly >85 years of age; or in some racia l or ethni c subgr oups, such as Hispa nics. Outsi de the valid ated sheila eters , estim ated GFR is less accur ate, requi ring clini hailey judgm ent on a case- by-ca se basis . Clini hailey inter preta tion for other races and ages must be made by the clini john. The MDRD study equat ion has not been valid ated for the evalu ation of serum creat inine relat ed to nutri dea l statu s or medic ation usage . For perso ns <18 years of age, a pedia tric GFR calcu lator is avail able on the [facility] websi te: https ://ww w.kid stephany.o rg/pr ofess ional s/kdo qi/gf r_cal culat or Not Available [facility] (Lab) [address] [place], [address], 04/21/2023 19:51:41 04/21/2004/21/2023 COMPR EHENS HELEN METAB OLIC PANEL alkaline phosphatase 63 U/L 38-126 Not Available [facility] (Lab) [address] [place], [address], 04/21/2023 19:51:41 04/21/2004/21/2023 COMPR EHENS HELEN METAB OLIC PANEL alanine aminotransfe rase 58 U/L 0-50 high Not Available [facility] (Lab) [address] [place], [address], 04/21/2023 19:51:41 04/21/2004/21/2023 COMPR EHENS HELEN METAB OLIC PANEL aspartate aminotransfe rase 45 U/L 15-46 Not Available [facility] (Lab) [address] [place], [address], 04/21/2023 19:51:41 04/21/2004/21/2023 COMPR EHENS HELEN METAB OLIC PANEL bilirubin, total 0.70 mg/dL 0.20-1 .30 Not Available [facility] (Lab) [address] [place], [address], 04/21/2023 19:51:41 04/21/2004/21/2023 COMPR EHENS HELEN METAB OLIC PANEL calcium 9.6 mg/dL 8.4-10 .2 Not Available [facility] (Lab) [address] [place], [address], 04/21/2023 19:51:41 04/21/2004/21/2023 COMPR EHENS HELEN METAB OLIC PANEL total protein 6.9 g/dL 6.3-8. 2 Not Available [facility] (Lab) [address] [place], [address], 04/21/2023 19:51:41 04/21/2004/21/2023 COMPR EHENS HELEN METAB OLIC PANEL albumin 4.5 g/dL 3.4-5. 0 Not Available [facility] (Lab) [address] [place], [address], 04/21/2023 19:51:41 04/21/2004/21/2023 COMPR EHENS HELEN METAB OLIC PANEL globulin 2.4 g/dL 2.6-4. 2 low Not Available [facility] (Lab) [address] [place], [address], 04/21/2023 19:51:41 04/21/2004/21/2023 COMPR EHENS HELEN METAB OLIC PANEL A/G ratio 1.9 ratio 1.0-2. 0 Not Available [facility] (Lab) [address] [place], [address], 04/21/2023 19:51:41 04/28/2004/28/2023 CBC/C OMPLE TE BLD COUNT W/DIF F white blood cells 6.7 x10'3 /uL 4.2-10 .8 Not Available [facility] (Lab) [address] [place], [address], 04/28/2023 19:10:41 04/28/20 23 04/28/2023 CBC/C OMPLE TE BLD COUNT W/DIF F red blood cells 5.02 x10'6 /uL 4.10-5 .80 Not Available [facility] (Lab) [address] [place], [address], 04/28/2023 19:10:41 04/28/2004/28/2023 CBC/C OMPLE TE BLD COUNT W/DIF F hemoglobin 15.7 g/dL 13.2-1 7.0 Not Available [facility] (Lab) [address] [place], [address], 04/28/2023 19:10:41 04/28/2004/28/2023 CBC/C OMPLE TE BLD COUNT W/DIF F hematocrit 47.6 % 39.3-5 0.0 Not Available [facility] (Lab) [address] [place], [address], 04/28/2023 19:10:41 04/28/2004/28/2023 CBC/C OMPLE TE BLD COUNT W/DIF F mean red cell volume 94.8 fL 80.0-9 7.0 Not Available [facility] (Lab) [address] [place], [address], 04/28/2023 19:10:41 04/28/2004/28/2023 CBC/C OMPLE TE BLD COUNT W/DIF F mean red cell hemoglobin 31.3 pg 27.0-3 3.0 Not Available [facility] (Lab) [address] [place], [address], 04/28/2023 19:10:41 04/28/2004/28/2023 CBC/C OMPLE TE BLD COUNT W/DIF F mean RBC HGB concentratio n 33.0 g/dL 31.0-3 6.0 Not Available [facility] (Lab) [address] [place], [address], 04/28/2023 19:10:41 04/28/2004/28/2023 CBC/C OMPLE TE BLD COUNT W/DIF F red cell distribution width 12.7 % 11.8-1 5.5 Not Available [facility] (Lab) [address] [place], [address], 04/28/2023 19:10:41 04/28/2004/28/2023 CBC/C OMPLE TE BLD COUNT W/DIF F platelets 323 x10'3 /uL 150-40 0 Not Available [facility] (Lab) [address] [place], [address], 04/28/2023 19:10:41 04/28/2004/28/2023 CBC/C OMPLE TE BLD COUNT W/DIF F mean platelet volume 10.1 fL 9.0-12 .4 Not Available [facility] (Lab) [address] [place], [address], 04/28/2023 19:10:41 04/28/2004/28/2023 CBC/C OMPLE TE BLD COUNT W/DIF F neutrophils 61.1 % 39.0-7 2.0 Not Available [facility] (Lab) [address] [place], [address], 04/28/2023 19:10:41 04/28/2004/28/2023 CBC/C OMPLE TE BLD COUNT W/DIF F lymphocytes 24.2 % 16.0-4 7.0 Not Available [facility] (Lab) [address] [place], [address], 04/28/2023 19:10:41 04/28/2004/28/2023 CBC/C OMPLE TE BLD COUNT W/DIF F monocytes 8.9 % 5.0-12 .0 Not Available [facility] (Lab) [address] [place], [address], 04/28/2023 19:10:41 04/28/2004/28/2023 CBC/C OMPLE TE BLD COUNT W/DIF F eosinophils 2.7 % 1.0-7. 0 Not Available [facility] (Lab) [address] [place], [address], 04/28/2023 19:10:41 04/28/2004/28/2023 CBC/C OMPLE TE BLD COUNT W/DIF F basophils 2.3 % 0.0-2. 0 high Not Available [facility] (Lab) [address] [place], [address], 04/28/2023 19:10:41 04/28/2004/28/2023 CBC/C OMPLE TE BLD COUNT W/DIF F immature granulocytes 0.8 % 0.00-0 .50 high Not Available [facility] (Lab) [address] [place], [address], 04/28/2023 19:10:41 04/28/2004/28/2023 CBC/C OMPLE TE BLD COUNT W/DIF F neutrophils, absolute count 4.07 x10'3 /uL 1.5-8. 0 Not Available [facility] (Lab) [address] [place], [address], 04/28/2023 19:10:41 04/28/2004/28/2023 CBC/C OMPLE TE BLD COUNT W/DIF F lymphocytes, absolute count 1.61 x10'3 /uL 1.07-3 .43 Not Available [facility] (Lab) [address] [place], [address], 04/28/2023 19:10:41 04/28/20 23 04/28/2023 CBC/C OMPLE TE BLD COUNT W/DIF F monocytes, absolute count 0.59 x10'3 /uL 0.29-0 .99 Not Available [facility] (Lab) [address] [place], [address], 04/28/2023 19:10:41 04/28/2004/28/2023 CBC/C OMPLE TE BLD COUNT W/DIF F eosinophils, absolute count 0.18 x10'3 /uL 0.02-0 .53 Not Available [facility] (Lab) [address] [place], [address], 04/28/2023 19:10:41 04/28/2004/28/2023 CBC/C OMPLE TE BLD COUNT W/DIF F basophils, absolute count 0.15 x10'3 /uL 0.01-0 .08 high Not Available [facility] (Lab) [address] [place], [address], 04/28/2023 19:10:41 04/28/2004/28/2023 CBC/C OMPLE TE BLD COUNT W/DIF F immature granulocytes ,absolute 0.05 x10'3 /uL 0.00-0 .05 Not Available [facility] (Lab) [address] [place], [address], 04/28/2023 19:10:41 04/28/20 23 04/28/2023 CBC/C OMPLE TE BLD COUNT W/DIF F nucleated red blood cells 0.0 % -0 Not Available [facility] (Lab) [address] [place], [address], 04/28/2023 19:10:41 04/28/2004/28/2023 CBC/C OMPLE TE BLD COUNT W/DIF F NRBC# 0.00 x10'3 /uL Not Available [facility] (Lab) [address] [place], [address], 04/28/2023 19:10:41 04/28/2004/28/2023 COMPR EHENS HELEN METAB OLIC PANEL sodium 137 mmol/ L 137-14 5 Not Available [facility] (Lab) [address] [place], [address], 04/28/2023 20:15:22 04/28/20 23 04/28/2023 COMPR EHENS HELEN METAB OLIC PANEL potassium 4.6 mmol/ L 3.5-5. 1 Not Available [facility] (Lab) [address] [place], [address], 04/28/2023 20:15:22 04/28/20 23 04/28/2023 COMPR EHENS HELEN METAB OLIC PANEL chloride 103 mmol/ L 98-107 Not Available [facility] (Lab) [address] [place], [address], 04/28/2023 20:15:22 04/28/20 23 04/28/2023 COMPR EHENS HELEN METAB OLIC PANEL carbon dioxide 29 mmol/ L 22-30 Not Available [facility] (Lab) [address] [place], [address], 04/28/2023 20:15:22 04/28/20 23 04/28/2023 COMPR EHENS HELEN METAB OLIC PANEL anion gap 9.6 mmol/ L 14-22 low Not Available [facility] (Lab) [address] [place], [address], 04/28/2023 20:15:22 04/28/20 23 04/28/2023 COMPR EHENS HELEN METAB OLIC PANEL glucose 106 mg/dL 70-99 high Not Available [facility] (Lab) [address] [place], [address], 04/28/2023 20:15:22 04/28/20 23 04/28/2023 COMPR EHENS HELEN METAB OLIC PANEL BUN 18 mg/dL 8-19 Not Available [facility] (Lab) [address] [place], [address], 04/28/2023 20:15:22 04/28/20 23 04/28/2023 COMPR EHENS HELEN METAB OLIC PANEL creatinine 1.05 mg/dL 0.66-1 .25 Not Available [facility] (Lab) [address] [place], [address], 04/28/2023 20:15:22 04/28/20 23 04/28/2023 COMPR EHENS HELEN METAB OLIC PANEL GFR >60 Refer ence Range : [place] ge GFR Healt hy Adult : >60 mL/mi n/1.7 3 m2 Chron ic Kidne y Disea se: 15-60 mL/mi n/1.7 3 m2 Kidne y Failu re: <15/m L/min /1.73 m2 www.n iddk. nih.g ov The MDRD study equat ion has not been valid ated in child bienvenido <18 years of age; pregn ant women ; the elder ly >85 years of age; or in some racia l or ethni c subgr oups, such as Hisfl nics. Outsi de the valid ated sheila eters , estim ated GFR is less accur ate, requi ring clini hailey judgm ent on a case- by-ca se basis . Clini hailey inter preta tion for other races and ages must be made by the clini john. The MDRD study equat ion has not been valid ated for the evalu ation of serum creat inine relat ed to nutri dea l statu s or medic ation usage . For perso ns <18 years of age, a pedia tric GFR calcu lator is avail able on the [facility] websi te: https ://ww w.kid stephany.o rg/pr ofess ional s/kdo qi/gf r_cal culat or Not Available [facility] (Lab) [address] [place], [address], 04/28/2023 20:15:22 04/28/20 23 04/28/2023 COMPR EHENS HELEN METAB OLIC PANEL alkaline phosphatase 52 U/L 38-126 Not Available [facility] (Lab) [address] [place], [address], 04/28/2023 20:15:22 04/28/20 23 04/28/2023 COMPR EHENS HELEN METAB OLIC PANEL alanine aminotransfe rase 47 U/L 0-50 Not Available [facility] (Lab) [address] [place], [address], 04/28/2023 20:15:22 04/28/20 23 04/28/2023 COMPR EHENS HELEN METAB OLIC PANEL aspartate aminotransfe rase 35 U/L 15-46 Not Available [facility] (Lab) [address] [place], [address], 04/28/2023 20:15:22 04/28/20 23 04/28/2023 COMPR EHENS HELEN METAB OLIC PANEL bilirubin, total 0.70 mg/dL 0.20-1 .30 Not Available [facility] (Lab) [address] [place], [address], 04/28/2023 20:15:22 04/28/20 23 04/28/2023 COMPR EHENS HELEN METAB OLIC PANEL calcium 9.6 mg/dL 8.4-10 .2 Not Available [facility] (Lab) [address] [place], [address], 04/28/2023 20:15:22 04/28/20 23 04/28/2023 COMPR EHENS HELEN METAB OLIC PANEL total protein 7.0 g/dL 6.3-8. 2 Not Available [facility] (Lab) [address] [place], [address], 04/28/2023 20:15:22 04/28/20 23 04/28/2023 COMPR EHENS HELEN METAB OLIC PANEL albumin 4.3 g/dL 3.4-5. 0 Not Available [facility] (Lab) [address] [place], [address], 04/28/2023 20:15:22 04/28/20 23 04/28/2023 COMPR EHENS HELEN METAB OLIC PANEL globulin 2.7 g/dL 2.6-4. 2 Not Available [facility] (Lab) [address] [place], [address], 04/28/2023 20:15:22 04/28/20 23 04/28/2023 COMPR EHENS HELEN METAB OLIC PANEL A/G ratio 1.6 ratio 1.0-2. 0 Not Available [facility] (Lab) [address] [place], [address], 04/28/2023 20:15:22 Result Notes None recorded. Problems Name Problem SNOMED Code Status Onset Date Resolution Date Notes Provider Name and Address Organization Details Recorded Time Asthma 636137538 Active Not Available [facility] 3 08:27:37 Essential hypertensi on 52249914 Active Not Available [facility] 3 08:27:37 COVID-19 989994478 Active 2021 Not Available [facility] 3 08:27:37 Effects of high altitude 23609003 Active 2021 Not Available [facility] 3 08:27:37 Hyperglyce linda 53453196 Active 2022 Not Available [facility] 3 08:27:37 Diabetes mellitus 97202322 Active 2022 Not Available [facility] 3 08:27:37 Type 2 diabetes mellitus without complicati on 657084983 Active 2022 Not Available [facility] 3 08:27:37 Cellulitis of toe of left foot 2576897669590 9105 Active 2022 Not Available [facility] 3 08:27:37 Hyperchole sterolemia 66988711 Active 2022 Not Available [facility] 3 08:27:37 White blood cell count outside reference range 630062810 Active 2022 Not Available [facility] 3 08:27:37 Problem Notes None recorded. Procedures Surgical History Date Name Laterality Status Provider Name and Address Organization Details Recorded Time appendectomy completed JELENA Hawth[place] - [place] [employer] [facility] 10/26/2022 14:39:46 Imaging Results None recorded. Procedure Notes None recorded. Medical Equipment None Reported. Allergies Allergen ID Allergen Name Allergen Category Reaction Reaction Severity Criticality Documentation Date Start Date Code Code System Note Provider Name and Address Organization Details Recorded Time 41163 Product containin g penicilli n (product) medicatio n Not available Not available Not available 09/01/2022 69499 8001 SNOMED Not Available [facility] 3 14:54:09 Medications Name Sig Start Date Stop Date Status Note LastModified by Organization Details LastModified Time losartan 50 mg tablet Take 1 tablet every day by oral route for 30 days. 11/15 completed Not Available Not Available Not Available metformin 500 mg tablet TAKE 2 TABLETS BY MOUTH TWICE DAILY 07/19 completed Not Available Not Available Not Available doxycycli ne hyclate 100 mg capsule TAKE 1 CAPSULE BY MOUTH TWICE DAILY 06/21 completed Not Available Not Available Not Available atorvasta tin 10 mg tablet TAKE 1 TABLET BY MOUTH EVERY DAY 06/21 completed pt states hes scared to take, messed with his vision Not Available Not Available Not Available azithromy jaosn 250 mg tablet FPD 10/26 completed Not Available Not Available Not Available Tamiflu 75 mg capsule TK ONE C PO BID active Not Available Not Available No t Available sulfameth oxazole 800 mg-trimet hoprim 160 mg tablet TAKE 1 TABLET BY MOUTH EVERY 12 HOURS 06/21 completed Not Available Not Available Not Available amlodipin e 10 mg tablet TAKE 1 TABLET BY MOUTH DAILY active pt has made an appointm ent Not Available Not Available Not Available albuterol sulfate HFA 90 mcg/actua tion aerosol inhaler INHALE 2 PUFFS BY MOUTH EVERY 4 HOURS 10/26 completed Not Available Not Available Not Available losartan 100 mg tablet TAKE 1 TABLET BY MOUTH EVERY DAY 12/22 completed Not Available Not Available Not Available fluticaso ne propionat e 50 mcg/actua tion nasal spray,cinthia pension 09/12 completed Not Available Not Available Not Available metformin ER 500 mg tablet,ex tended release 24 hr Take 2 tablets every day by oral route at bedtime. 2023 active Not Available Not Available Not Avai lable Zetia 10 mg tablet Take 1 tablet every day by oral route. 2023 active Not Available Not Available Not Avai lable Aspir-81 2017 active Not Available Not Available Not Avai lable Suprep Bowel Prep Kit 17.5 gram-3.13 gram-1.6 gram oral solution TK UTD 10/26 completed Not Available Not Available Not Available OneTouch Verio test strips USE TO TEST TWICE DAILY active Not Available Not Available No t Available Ozempic 0.25 mg or 0.5 mg (2 mg/1.5 mL) subcutane ous pen injector Inject 0.25mg weekly for 4 weeks and then 0.5 weekly for 4 weeks 12/14 completed Not Available Not Available Not Available OneTouch Delica Plus Lancet 33 gauge USE TO CHECK BLOOD SUGAR TWICE DAILY active Not Available Not Available No t Available OneTouch Verio Reflect Meter USE DIRECTED active Not Available Not Available No t Available Paxlovid 300 mg (150 mg x 2)-100 mg tablets in a dose pack TK 2 NIRMATRE LVIR TS AND 1 RITONAVI R T TOGETHER PO BID FOR 5 DAYS BID FOR 5 DAYS 10/26 completed Not Available Not Available Not Available Ozempic 0.25 mg or 0.5 mg (2 mg/3 mL) subcutane ous pen injector Inject by subcutan eous route for 28 days. 12/14 completed Not Available Not Available Not Available Vitals Date Recorded Body height Body mass index (BMI) Body weight Body temperature Heart rate Oxygen saturation Oxygen saturation in Arterial blood by Pulse oximetry Systolic blood pressure Diastolic blood pressure Provider Name and Address Organization Details Last Updated DateTime 4 182.88 cm 34.2 kg/m2 513176. 28 g 98.4 [degF] 111 /min 97 % 97 % 177 mm[Hg] 108 mm[Hg] Era Yeager [place] [facility] [employer] 4 15:20:42 Date Recorded Body height Body mass index (BMI) Body weight Body temperature Heart rate Oxygen saturation Oxygen saturation in Arterial blood by Pulse oximetry Systolic blood pressure Diastolic blood pressure Provider Name and Address Organization Details Last Updated DateTime 3 182.88 cm 34.9 kg/m2 966814. 24 g 98.6 [degF] 97 /min 97 % 97 % 144 mm[Hg] 88 mm[Hg] Norah Monahan RN [facility] 3 15:27:14 Date Recorded Body height Body mass index (BMI) Body weight Body temperature Heart rate Systolic blood pressure Diastolic blood pressure Provider Name and Address Organization Details Last Updated DateTime 3 182.88 cm 34.2 kg/m2 235981. 28 g 98.2 [degF] 99 /min 150 mm[Hg] 92 mm[Hg] Joanne santos RN [facility] 3 14:46:55 Date Recorded Body height Body mass index (BMI) Body weight Body temperature Heart rate Systolic blood pressure Diastolic blood pressure Provider Name and Address Organization Details Last Updated DateTime 3 182.88 cm 33.9 kg/m2 173562. 09 g 101.2 [degF] 110 /min 126 mm[Hg] 92 mm[Hg] YUSUF Romo [facility] 3 14:49:42 Date Recorded Body height Body mass index (BMI) Body weight Body temperature Heart rate Systolic blood pressure Diastolic blood pressure Provider Name and Address Organization Details Last Updated DateTime 3 182.88 cm 33.5 kg/m2 339699. 32 g 98.4 [degF] 112 /min 136 mm[Hg] 92 mm[Hg] YUSUF Romo [facility] 3 14:11:03 Social History Question Answer Notes LastModified by Organizat ion Details LastModified Time Tobacco Smoking Status Former Smoker Norah Monahan RN [facility] 10/26/2022 14:38:47 Do You Have An Advance Directive? No Information not available 03/22/2023 What Is Your Level Of Caffeine Consumption? Occasional [email or web address] Information not available 10/26/2022 In The 14 Days Before Symptom Onset, Have You Had Close Contact With A Laboratory-confir med COVID-19 While That Case Was Ill? No Information not available 03/22/2023 In The 14 Days Before Symptom Onset, Have You Had Close Contact With A Person Who Is Under Investigation For COVID-19 While That Person Was Ill? No Information not available 03/22/2023 What Type Of Diet Are You Following? REGULAR [email or web address] Information not available 10/26/2022 What Is The Highest Grade Or Level Of School You Have Completed Or The Highest Degree You Have Received? [id number] [email or web address] Information not available 10/26/2022 Have There Been Any Changes To Your Family Or Social Situation? No [email or web address] Information no t available 10/26/2022 When Did You Quit Smoking? 16+yearssincel astcigarette [email or web address] Information not available 10/26/2022 Do You Use Insect Repellent Routinely? Yes [email or web address] Information not available 10/26/2022 Do You Have A Medical Power Of Roustabout Hand? No Information not available 03/22/2023 What Was The Date Of Your Most Recent Tobacco Screening? 06/21/2023 [email or web address] Information not available 06/21/2023 What Is Your Relationship Status? [email or web address] Information not available 10/26/2022 Do You Use Your Seat Belt Or Car Seat Routinely? Yes [email or web address] Information not available 10/26/2022 Do You Have Smoke And Carbon Monoxide Detectors In Your Home? Yes [email or web address] Information not available 10/26/2022 Are You Passively Exposed To Smoke? No [email or web address] Information no t available 10/26/2022 Are There Any Smokers In Your House? No [email or web address] Information not available 10/26/2022 Do You Use Sunscreen Routinely? Yes [email or web address] Information not available 10/26/2022 Have You Recently Traveled Abroad? No Information not available 03/22/2023 Do You Have Any Dietary Restrictions? No [email or web address] Information not available 10/26/2022 Sex: Unknown Functional Status Question Answer Note LastModified by Organizat ion Details LastModified Time Do you use any illicit or recreational drugs? No [email or web address] Information not available 10/26/2022 Do you or have you ever used any other forms of tobacco or nicotine? No [email or web address] Information not available 10/26/2022 What is your level of alcohol consumption? Heavy [email or web address] Information not available 10/26/2022 Are you currently employed? Yes [email or web address] Information not available 10/26/2022 What is your occupation? [id number] Information not available 09/01/2022 What is your exercise level? Occasional [email or web address] Information not available 10/26/2022 Mental Status Question Answer Note LastModified by Organization D etails LastModified Time Do you feel stressed (tense, restless, nervous, or anxious, or unable to sleep at night)? [id number] [email or web address] Information not available 10/26/2022 Family History Nothing Reported. Medical History Condition Response NERVE DISEASE N BLINDNESS N RHEUMATIC FEVER N KIDNEY STONES N BLADDER PROBLEMS N MRSA N OTHER # 1 N POLIO N LUNG DISEASE/DISORDER N HISTORY OF DRUG ABUSE N RADIATION / CHEMOTHERAPY N COPD N Other # 2 N BLOOD DISEASES N EAR OR HEARING PROBLEMS N MUMPS N SHINGLES N DEPRESSION (INCLUDING POST ) N BOWEL PROBLEMS N FAILED BACK SYNDROME N STROKE/TIA N ULCERS N BENIGN PROSTATIC HYPERPLASIA N MEASLES N HYPOTENSION N MYOCARDIAL INFARCTION N OBESITY N GERD/NAUSEA N ANEURYSM N URINARY/BLADDER/KIDNEY PROBLEMS N CORONARY ARTERY DISEASE (CAD) N Do you have Advance directive? N ADDICTION CONCERNS N Impotence N ENDOMETRIOSIS N USE OF BLOOD THINNERS N SKIN PROBLEMS N GASTROINTESTINAL DISORDER N PERIPHERAL VASCULAR DISEASE N MUSCLE,JOINT OR BONE PROBLEMS N GASTROINTESTINAL BLEEDING N BLOOD CLOTS N ASTHMA N CATARACTS N Abdominal Pain N ERECTILE DYSFUNCTION N ARTERIAL INSUFFICIENCY N VARICOSITIES N GI PROBLEMS N Low Testosterone N INFERTILITY N AIDS/HIV N CHEMOTHERAPY / RADIATION N LIVER DISEASE N MALE HYPOGONADISM N HYPERTENSION N Deficiency N TOURETTE'S N ANXIETY DISORDER N BLOOD TRANSFUSION N ANEMIA/BLOOD DISORDER N CHRONIC EAR INFECTIONS N TUBERCULOSIS N GLAUCOMA N FOOT PROBLEM N DIVERTICULITIS N SLEEP APNEA N CHICKENPOX N BACK INJECTIONS N ALLERGIES/HAYFEVER N INFECTIOUS DISEASE N PROSTATE N HEART ARRHYTHMIA N INSOMNIA N ESRD N HIGH CHOLESTEROL / HYPERLIPIDEMIA N HYPERTHYROIDISM N EYE PROBLEMS N PVD N EDEMA N CHRONIC PAIN SYNDROME N HYPOTHYROIDISM N CONSTIPATION N CAROTID BLOCKAGE N BACK / NECK PROBLEMS N HAVE YOU BEEN HOSPITALIZED OR SEEN IN THE MEDICAL CENTER IN THE PAST YEAR ? N ATHEROSCLEROSIS N BREAST PROBLEMS N DIALYSIS N POLYCYSTIC OVARIES N ECZEMA N OSTEOPOROSIS N ARTHRITIS N NO SIGNIFICANT PAST MEDICAL HISTORY N APPENDICITIS N DIABETES, TYPE N BAD TEETH N VON WILLIBRAND'S DISEASE N ENT N HEARTBURN / REFLUX N GI N AUTISM SPECTRUM DISORDER (ASD) N POST LAMINECTOMY SYNDROME N HEPATITIS / LIVER DISEASE N GOUT N SLEEP DISORDER N ALZHEIMER'S DISEASE N Brain Problems N HERPES N DEMENTIA N SEIZURES/EPILEPSY N HEADACHES/MIGRAINES N VASCULAR DISEASE N PACEMAKER N DIZZINESS N KIDNEY DISEASE N HEART DISEASE/HEART PROBLEMS N MULTIPLE SCLEROSIS N NEUROPSYCHOLOGICAL N CARDIAC ARRHYTHMIA N CANCER: SPECIFY N Gall Stones N ATRIAL FIBRILLATION N PULMONARY EMBOLISM N AUTOIMMUNE DISEASE N Immunizations Vaccine Type Date Status Note Provider Nam e and Address Organization Details Recorded Time Influenza, split virus, trivalent, preservative 3 completed Not Available [facility] 06/23/2023 08:27:37 Past Encounters Encounter ID Performer Location Encounter Start Date Encounter Closed Date Diagnosis/Indication Diagnosis SNOMED-CT Code Diagnosis ICD10 Code Diagnosis Note [id number] Brannon Covarrubias MD [facility] [place] [address] [facility] [place] [address] 10/26/2022 14:29:20 10/26/2022 15:57:14 Essential hypertension 96621933 I10 Screening for malignant neoplasm of prostate 771976058 Z12.5 Hyperglycemia 33827343 R 73.9 History of polyp of colon 859375703 Z86.010 [id number] Brannon Covarrubias MD [facility] [place] [address] [place] [address] 12/14/2022 14:45:44 12/14/2022 15:52:02 Diabetes mellitus 29054478 E11.9 Essential hypertension 83841558 I10 [id number] Brannon Covarrubias MD [facility] [place] [address] [facility] [place] [address] 03/22/2023 14:24:47 03/22/2023 16:07:48 Essential hypertension 32277975 I10 Type 2 milton betes mellitus without complication 986540659 E11.9 [id number] Brannon Covarrubias MD [facility] [place] [address] [place] [address] 04/19/2023 14:41:04 04/19/2023 15:33:05 Cellulitis of toe of left foot 4875946092 4739257 L03.738 [id number] Brannon Covarrubias MD [facility] [place] [address] [facility] [place] [address] 06/21/2023 14:03:39 06/21/2023 14:56:17 Diabetes mellitus 84241910 E11.9 Essential hypertension 55628555 I10 Hypercholesterolemia 136 76483 E78.00 [id number] Brannon Covarrubias MD [facility] [place] [address] [facility] [place] [address] 07/19/2023 15:10:35 07/19/2023 16:28:03 Hypercholesterolemia 49520057 E78.00 Type 2 milton betes mellitus without complication [id number] E11.9 Health Concerns Section Related Observation LastModified by Organization Detai ls LastModified Time None Recorded Concern Status LastModified by Organization Details LastModified Time None Recorded Advance Directives Directive N: Payers Insurance Date Sequence Insurance Name Policy Number Policy Tai Covered Member ID Tai Member ID Guarantor Name 10/26/2022 1 [facility] [id number] Logan Diez [id number] Logan Diez 07/18/2023 1 [facility] [id number] Logan Diez [id number] Logan Diez Notes Date Note Type Note Provider Name and Address Organization Details Recorded Time 3 text/html Labs show diabetes and dyslipidemia as really lost any weight Brannon Covarrubias MD [address], [place], [address], [employer] [facility] [employer] 12/19/2022 10:27:46 3 text/html having some GI issues with the metforminhypertension no headache or dizzinesshaving some blurred vision left eye off and on Brannon Covarrubias MD [address], [place], [address], [employer] [facility] [employer] 03/22/2023 22:01:44 3 text/html dog stepped on his toe went to Urgent Care subungual hematoma with some infection started on Septra stomach pain some weakness fatigue no fever no chills he has had some muscle ache urines been a little darker Brannon Covarrubias MD [address], [place], [address], [facility] [employer] [facility] [employer] [facility] 04/19/2023 22:44:38 3 text/html Atorvastatin get blurred vision diabetes no polyphagia polydipsia hypertension no headache or dizziness dyslipidemia we need to switch to different drug Brannon Covarrubias MD [address], [place], [address], [employer] [facility] [employer] [facility] 07/04/2023 13:38:41 4 text/html Doing fine tolerating medicines starting on the Zetia Brannon Covarrubias MD [address], [place], [address], [employer] [facility] [employer] [facility] 07/19/2023 21:47:38
[2024-12-21 06:21] VITALS: BP 147/95; PULSE 108; RESP 18; TEMP 36.8; O2SAT 97
[2024-12-21] MEDS: LACTATED RINGERS 1,000 ML 150 ML IV CONT (06:33)
[2024-12-21 06:34] LABS: Glucose Point of Care 201 mg/dl (65-105)
--- NOTE | 2024-12-21 07:22 | WPDANESEPPF ---
Anes - Initial Pre Proc Eval Procedure: Operation Date: 12/21/24 07:30 Proposed Procedures p Screening Colonoscopy - Lamont Ruggiero MD Date/Time: 12/21/24 07:22 Surgeon: Lamont Ruggiero MD Pre Op Diagnosis: History of polyps Patient Data Age: 59 Gender: M Height: 1.83 m Weight: 116.9 kg Last Vital Signs Temp 98.2 F 12/21/24 06:21 Pulse 108 H 12/21/24 06:21 Resp 18 12/21/24 06:21 BP 147/95 H 12/21/24 06:21 Pulse Ox 97 12/21/24 06:21 O2 Del Method Room Air 12/21/24 06:21 Allergies Allergy/AdvReac Type Severity Reaction Status Date / Time Penicillins Allergy Unknown PCN Verified 12/21/24 06:19 Home Medications ?Medication ?Instructions ?Recorded ?Confirmed ?Type Adult Low Dose Aspirin 81 mg PO DAILY 11/22/19 12/21/24 History psyllium husk 3.4 gram/5.4 gram 1 tbsp PO DAILY 11/22/19 12/21/24 History oral powder (Metamucil) ezetimibe 10 mg tablet 10 mg PO DAILY 12/13/24 12/21/24 History metformin 500 mg tablet,extended 1,000 mg PO QPM 12/13/24 12/21/24 History release 24 hr Laboratory Tests 12/21/24 06:29 POC Capillary Glucose 201 H mg/dl (65-105) Patient hx anesthesia problems: none Family hx anesthesia problems: none Results Review: All pre-operative results and documents have been reviewed as part of the pre-operative evaluation. [facility] Past Medical History Medical History Asthma Fatty liver Hypertension Surgical History Surgical History History of inguinal herniorrhaphy Status post appendectomy Social History Social History Smoking status: Former smoker Tobacco type: cigarettes Alcohol intake: current Drinks per week: 20 Alcohol use details: [employer] Substance use: never Substance use type: does not use Living arrangements: with family Spiritual care concerns: No Anes - Eval Final PreProcedure Day of Procedure 12/21/24 07:22 Patient weight: obese Heart: regular rate and rhythm Lungs: clear to auscultation Airway: Mallampati scale class II Neurological: alert and oriented Last oral intake: >/= 8 hours ASA classification: III Emergent: no Anesthetic plan: proceed Anesthesia type and monitoring: general GIVS and standard monitoring Results Review: All pre-operative results and documents have been reviewed as part of the pre-operative evaluation. Informed Consent: The patient's anesthetic plan and its attendant risks and benefits were discussed with the patient/family/POA. Questions were solicited and answers provided to the satisfaction of the patient/family/POA.
--- NOTE | 2024-12-21 07:29 | P.HP_ITS ---
History of Present Illness History of Present Illness Consent: Risks, benefits, and alternatives have been discussed and questions answered. Patient agrees to proceed with procedure. Chief complaint: History of polyps Narrative: Logan Diez is a 59 year old male with colon polyp in 2019 Review of Systems Review of Systems: All systems reviewed & are unremarkable except as noted in HPI and below [facility] Past Medical History Medical History (Updated 12/21/24 @ 07:38 by Lamont Ruggiero MD) Adenomatous colon polyp Fatty liver Asthma Hypertension Surgical History Surgical History History of inguinal herniorrhaphy Status post appendectomy Social History Social History Smoking status: Former smoker Tobacco type: cigarettes Alcohol intake: current Drinks per week: 20 Alcohol use details: [employer] Substance use: never Substance use type: does not use Living arrangements: with family Spiritual care concerns: No Meds Home Medications and Allergies Home Medications ?Medication ?Instructions ?Recorded ?Confirmed ?Type Adult Low Dose Aspirin 81 mg PO DAILY 11/22/19 12/21/24 History psyllium husk 3.4 gram/5.4 gram 1 tbsp PO DAILY 11/22/19 12/21/24 History oral powder (Metamucil) ezetimibe 10 mg tablet 10 mg PO DAILY 12/13/24 12/21/24 History metformin 500 mg tablet,extended 1,000 mg PO QPM 12/13/24 12/21/24 History release 24 hr Allergies Allergy/AdvReac Type Severity Reaction Status Date / Time Penicillins Allergy Unknown PCN Verified 12/21/24 06:19 Vital Signs Vital Signs - 24 hr 12/21/24 06:21 Temperature 98.2 F Pulse Rate 108 H Respiratory Rate 18 Blood Pressure 147/95 H Pulse Oximetry 97 Oxygen Delivery Room Air Exam Const: General: comfortable and no acute distress HENMT: Face/Nose/Sinus: Normal nares present Eyes: General: appearance normal, both eyes and all related structures Neck: Neck: no JVD Resp: Auscultation: clear to auscultation bilaterally Cardio: Rate: regular rate Rhythm: regular rhythm GI: Inspection: non-distended GI Palp: Yes Soft to palpation Skin: General skin exam: normal color Neuro: General: gait normal Speech: normal speech Extrem: General: normal to inspection Psych: Mental Status: mental status grossly normal Assessment and Plan Assessment and plan (1) Adenomatous colon polyp: Code(s): D12.6 - Benign neoplasm of colon, unspecified Status: Acute Assessment and Plan: colonoscopy
[2024-12-21 07:39] VITALS: BP 113/81; PULSE 91; RESP 22; O2SAT 96
[2024-12-21 07:49] VITALS: BP 127/85; PULSE 82; RESP 20; O2SAT 97
[2024-12-21 07:59] VITALS: BP 137/96; PULSE 81; RESP 22; O2SAT 97
== END 2024-12-21 08:06 | disposition home or self-care (01) ==
PROVIDERS: PCP Internal Medicine; Referring Provider Internal Medicine; Visit Provider Internal Medicine Gastroenterology
PROC: 0DJD8ZZ Inspection of Lower Intestinal Tract, Via Natural or Artificial Opening Endoscopic (ICD-10-PCS; CPT 45378; principal; 2024-12-21 07:30)
DX: Z12.11 Encounter for screening for malignant neoplasm of colon (principal); K57.30 Diverticulosis of large intestine without perforation or abscess without bleeding; K64.8 Other hemorrhoids; Z86.0100 Personal history of colon polyps, unspecified; Z79.84 Long term (current) use of oral hypoglycemic drugs; Z87.891 Personal history of nicotine dependence; E66.9 Obesity, unspecified; Z68.35 Body mass index [BMI] 35.0-35.9, adult
CPT/HCPCS: 45378; 82948; J2003; J2704; J7120